=== PATIENT | female | born 1970 | race African-American/Black ===

== ENCOUNTER 2017-04-05 06:06 | Inpatient (IN) | payer BC ==
[2017-03-31 17:19] LABS: BASOPHILS 0.3 %; BASOPHILS ABSOLUTE 0.02 10/3/uL (0.0-0.16); EOSINOPHILS 4.7 %; EOSINOPHILS ABSOLUTE 0.33 10/3/uL (0.0-0.53); HEMATOCRIT 32.6 % (36.0-48.0); HEMOGLOBIN 10.4 g/dL (12.0-16.0); IMMATURE GRANULOCYTES 0.1 %; IMMATURE GRANULOCYTES ABSOLUTE 0.01 10/3/uL (0.0-0.11); LYMPHOCYTES 47.5 %; MANUAL DIFF NO %; MEAN CORPUS HGB CONC 31.9 g/dL (32.0-36.0); MEAN CORPUSCULAR HEMOGLOB 23.4 pg (26.0-34.0); MEAN CORPUSCULAR VOLUME 73.3 fL (80-100); MEAN PLATELET VOLUME 10.3 fL (9.2-13.0); MONOCYTES 5.3 %; MONOCYTES ABSOLUTE 0.37 10/3/uL (0.21-1.20); NEUTROPHILS 42.1 %; NEUTROPHILS ABSOLUTE 2.92 10/3/uL (2.02-8.40); PLATELET COUNT 301 10/3/uL (150-400); RBC DISTRIBUTION WIDTH 18.6 % (12.0-16.0); RED CELL COUNT 4.45 10/6/uL (4.0-5.6)
[2017-03-31 17:26] LABS: INTERNATIONAL NORMAL RATI 1.1 UNITS (-); PROTIME (NOT ORD) 13.6 SEC (12.0-14.5)
[2017-03-31 17:42] LABS: A/G RATIO 0.5 (0.7-1.9); ALBUMIN 2.7 G/DL (3.5-5.0); ALKALINE PHOSPHATASE 82 U/L (45-117); BUN (BLOOD UREA NITROGEN) 6 MG/DL (6-23); CALCIUM, SERUM 8.6 MG/DL (8.5-10.4); CHLORIDE, SERUM 110 MMOL/L (96-112); CO2 (CARBON DIOXIDE) 26 MMOL/L (24-34); CREATININE 0.67 MG/DL (0.55-1.02); GFR AFRICAN AMERICAN 122 ML/MIN (>=60); GFR NON AFRICAN AMERICAN 105 ML/MIN (>=60); GLOBULIN 5.2 G/DL (2.5-4.1); GLUCOSE, SERUM 135 MG/DL (60-99); IRON BINDING CAPACITY 438 MCG/DL (225-410); SGOT(AST) 9 U/L (5-40); SGPT(ALT) 14 U/L (5-65); SODIUM, SERUM 142 MMOL/L (135-148); TOTAL BILIRUBIN 0.3 MG/DL (0-1.2); TOTAL PROTEIN 7.9 G/DL (6.0-8.5)
[2017-03-31 17:44] LABS: POTASSIUM, SERUM 3.9 MMOL/L (3.5-5.3)
[2017-03-31 18:09] LABS: ASCORBIC ACID (UR NOT ORDER) NEG (NEG); BILIRUBIN, URINE NEGATIVE (NEG); KETONE, URINE NEGATIVE (NEG); LEUKOCYTE ESTERASE(NOT OR NEG (NEG); WBC (NOT ORDERED) (RFLEX) < 1 (0-5)
--- NOTE | ~2017-04-05 | CN ---
Consultation Report [facility] [id number] [place]. [address] NAME: GILBERT SOMMER : 70 STATUS : ADM IN [facility]#: [id number] AGE: 46 ADM/REG DATE : 04/05/17 MR#: [id number] REPORT SERV DATE: 04/06/17 DICTATED BY: LESA HAGER DATE: 04/06/17 REPORT STATUS : Draft TRANSCRIBED BY: MODSyed DATE: 04/06/17 DATE OF CONSULTATION: REASON FOR CONSULTATION: Diabetes mellitus management. HISTORY OF PRESENT ILLNESS: This is a 46-year-old female patient who came to the hospital for elective mitral valve replacement. The patient had a successful mitral valve replacement with mechanical valve yesterday and remained in stable condition without any pressor support in the CV ICU. She is recovering very well, and the Hospitalist Service was called for diabetes management. She has been diabetic since 2006, and she is taking metformin and Bydureon. Her last A1c was 6.9, and her primary care physician, Dr. Lakisha Kaye is managing her diabetes mellitus. She also does have rheumatoid arthritis. She goes to Dr. Jean Claude Madrid, taking Plaquenil, methotrexate, and mesalamine. She does not have any chest pain. No shortness of breath, fever, visual changes, or weakness. She does not have any nausea, vomiting, diarrhea, or urination problem. She does have Olea catheter at this point. REVIEW OF SYSTEMS: All 10 systems reviewed and negative. PAST MEDICAL PROBLEM: 1. Diabetes mellitus. 2. Mitral stenosis. 3. Rheumatoid arthritis. 4. Hypertension. 5. Hyperlipidemia. 6. Coronary artery disease, status post heart catheterization and stent in 11/2016. PAST SURGICAL HISTORY: 1. Right carpal tunnel surgery in 2009. 2. Both elbow surgery; left one in 1999; right one in 2003. 3. Cardiac catheterization with stent in 11/2016. 4. Excision of the right foot arthritic nodule in 2012. ALLERGIES: NO KNOWN DRUG ALLERGIES. SOCIAL HISTORY: She smoked cigarettes one pack a day for the last 24 years. She lives with her . She does not work. She is disabled from rheumatoid arthritis. Denies any drinking alcohol and drug use. Consultation Report [facility] [id number] [place]. [address] NAME: GILBERT SOMMER : 70 STATUS : ADM IN PAT#: [id number] AGE: 46 ADM/REG DATE : 04/05/17 MR#: [id number] REPORT SERV DATE: 04/06/17 DICTATED BY: LESA HAGER DATE: 04/06/17 REPORT STATUS : Draft TRANSCRIBED BY: MODL DATE: 04/06/17 MEDICATIONS AT HOME: 1. Aspirin 162 mg once a day. 2. Lipitor 10 mg once at night. 3. Coreg 6.25 mg twice a day. 4. Bydureon 2 mg every week. 5. Folic acid 1 mg once a day. 6. Neurontin 300 mg three times a day. 7. Plaquenil 200 mg twice a day. 8. Lisinopril 10 mg twice a day. 9. Glucophage 500 mg twice a day. 10.Methotrexate 20 mg every week. 11.Prilosec 20 mg once a day. 12.Requip 2 mg once a day. 13.Sulfasalazine 500 mg twice a day. PHYSICAL EXAMINATION: VITAL SIGNS: Blood pressure 118/79 without any pressor support; pulse is 83; temperature 98.2; respiratory rate is 18; saturation is 99% on 3 L of oxygen. GENERAL APPEARANCE: She is alert, awake, not in acute distress in the CV ICU setting. CHEST: She has a median sternotomy covered with a wound VAC. LUNGS: Pretty clear to auscultation. She has decreased breathing sound in both bases. No crackles or wheezing. CARDIOVASCULAR: She has a regular rhythm and rate, and I do hear the mechanical valve sound. ABDOMEN: Bowel sounds present. Soft. No organomegaly appreciated. EXTREMITIES: No pitting edema. LABORATORY DATA: Showed sodium 141, potassium 4.2, chloride of 110, BUN 11, creatinine 0.5. WBC 12.7, hemoglobin 9.2, hematocrit 29.5, platelets 163. INR is 1.6. ASSESSMENT AND PLAN: 1. Diabetes mellitus. A1c was 6.9. Patient was taking Bydureon and Glucophage at home. Currently, requiring about a unit of regular insulin intravenously. 2. Postop mitral valve replacement. 3. Rheumatoid arthritis. 4. Tobacco abuse. 5. Hypertension. 6. The patient will be transitioned to subcutaneous insulin at this time, and we will follow this patient. Thank you for the consultation. EKL/MODL Consultation Report [facility] [address] [address] NAME: GILBERT SOMMER : 70 STATUS : ADM IN PAT#: [id number] AGE: 46 ADM/REG DATE : 04/05/17 MR#: [id number] REPORT SERV DATE: 04/06/17 DICTATED BY: LESA HAGER DATE: 04/06/17 REPORT STATUS : Draft TRANSCRIBED BY: MODSyed DATE: 04/06/17 Lesa Hager M.D. / [id number] CC: MD MEY Strange WENDY A
--- NOTE | ~2017-04-05 | DS ---
Discharge Summary [facility] [address] [place]. [address] NAME: GILBERT SOMMER : 70 STATUS : DIS IN PAT#: [id number] AGE: 46 ADM/REG DATE : 04/05/17 MR#: [id number] REPORT SERV DATE: 04/20/17 DICTATED BY: JM KEENE DATE: 04/20/17 REPORT STATUS : Draft TRANSCRIBED BY: ALEXANDRE DATE: 04/20/17 Data Collection from hospitalization DISCHARGE DIAGNOSES: 1. Mitral valve regurgitation. 2. Diabetes. 3. Hypertension. 4. Hyperlipidemia. 5. Pulmonary edema. 6. Gastroesophageal reflux disease. 7. Asthma. 8. History of pya-TQ-irlmecmoh myocardial infarction. 9. Rheumatoid arthritis. 10.Restless leg syndrome. 11.Tobacco use. CONSULTATIONS: Dr. Lesa Hager and Dr. Sergio Simmons. PROCEDURE PERFORMED: Median sternotomy; extracorporeal circulation; mitral valve replacement with 29 mm mechanical valve, Feng [employer] mitral valve; transesophageal echocardiogram; Prevena dressing placement; left atrial appendage clip, 35 mm clip, 04/05/2017. PATHOLOGY: Anterior mitral valve leaflet-fibroelastotic thickening. No vegetations present. MEDICATIONS: Aspirin 81 mg daily, Lipitor 10 mg at bedtime, Bydureon 2 mg subcutaneously every seven days, folic acid 1 mg daily, Lasix 40 mg daily, Neurontin 300 mg three times a day, [place] 5/325 one to two tablets every four hours as needed, Plaquenil 200 mg twice a day, Zestril 10 mg twice a day, Glucophage 500 mg with breakfast and supper, methotrexate 20 mg every seven days, Prilosec 20 mg daily, K-Dur 20 mEq daily, Requip 2 mg at bedtime, Azulfidine 500 mg twice a day, Coumadin as instructed. CONDITION AT DISCHARGE: Stable. DISPOSITION: The patient was discharged home on an 1800-calorie cardiac/diabetic diet with activities as instructed. She would follow up with Ethan Otero NP two weeks following discharge and with Dr. Sergio Simmons two weeks following discharge. INR check would be performed at Dr. Simmons's office, 04/12/2017. HOSPITAL COURSE: This is a 46-year-old female, who was a smoker and had been admitted to [facility]Note 3] with an acute myocardial infarction. She had stenting of her obtuse marginal performed with a bare-metal stent and was discharged, but ultimately came back to the hospital in congestive heart failure and was found to have ayutkbgj-sl-xedhyw mitral regurgitation with an ejection fraction of approximately 40%. It was felt that she would need to undergo surgical intervention. She was admitted to the hospital at this time for further evaluation and treatment. Upon admission, she was taken to the operating room, where she underwent the above-mentioned procedure. She tolerated this well and there were no complications. On postop day one, she Discharge Summary [facility] [address] [place]. [address] NAME: GILBERT SOMMER : 70 STATUS : DIS IN PAT#: [id number] AGE: 46 ADM/REG DATE : 04/05/17 MR#: [id number] REPORT SERV DATE: 04/20/17 DICTATED BY: JM KEENE DATE: 04/20/17 REPORT STATUS : Draft TRANSCRIBED BY: ALEXANDRE DATE: 04/20/17 was up sitting in a chair. She felt sore. She was able to eat. Diuresis was started. Her blood pressure was controlled. She was seen in consultation by Dr. Lesa Hager regarding diabetes mellitus management. She remained in stable condition without any pressor support in the Cardiovascular ICU. She was recovering well. The patient has been a diabetic since 2006. She had been taking metformin and Bydureon. Her last hemoglobin A1c was 6.9, white count was 12.7. She was going to be transitioned to subcutaneous insulin at this time. Hemoglobin A1c was going to be checked. The patient was seen by Dr. Sergio Simmons. The patient was awake and alert. Her lungs were clear at this time. A nicotine patch had been placed. On 04/07/2017, she was ambulatory. She was being given Glucophage. Insulin was adjusted. Hemoglobin A1c was 6.9. She was ambulating. Blood pressure was controlled. She was in a normal sinus rhythm. Over the next couple of days, discharge planning was performed. INR level was 1.5. Her Glucophage had been resumed. Her Roque drain was discontinued. On 04/09/2017, she was in no distress. She was alert and cooperative. Discharge instructions were given. Due to her improved and stable condition, she was discharged home with the above-stated instructions. Information collected by: Char Velez I submit the above information as my discharge summary. KATH/ALEXANDRE Jm Keene MD / [id number] CC: MD MEY Strange WENDY A [place] A [place], D.O.
--- NOTE | ~2017-04-05 | OP ---
Record Of Operation [facility] [address] [place]. [address] NAME: GILBERT SOMMER : 70 STATUS : ADM IN PAT#: [id number] AGE: 46 ADM/REG DATE : 04/05/17 MR#: [id number] REPORT SERV DATE: 04/05/17 DICTATED BY: JM KEENE DATE: 04/05/17 REPORT STATUS : Draft TRANSCRIBED BY: MODL DATE: 04/05/17 DATE OF PROCEDURE: 04/05/2017 PREOPERATIVE DIAGNOSES: 1. Oogtnhem-ln-llstyn mitral regurgitation. 2. Coronary artery disease, status post obtuse marginal stenting. 3. Systolic congestive heart failure, chronic. 4. Rheumatoid arthritis. POSTOPERATIVE DIAGNOSES: 1. Svqblbnm-yb-oklxci mitral regurgitation. 2. Coronary artery disease, status post obtuse marginal stenting. 3. Systolic congestive heart failure, chronic. 4. Rheumatoid arthritis. OPERATIONS/PROCEDURES PERFORMED: 1. Median sternotomy. 2. Extracorporeal circulation. 3. Mitral valve replacement with 29 mm mechanical valve, Feng [employer] mitral valve. 4. Transesophageal echo. 5. Prevena dressing placement. 6. Left atrial appendage clip, 35 mm clip. SURGEON: Jm Keene MD SOCIAL MEDIA ANALYST: Frank Keene. ANESTHESIOLOGIST: Pasquale Aguillon M.D. TUBES AND DRAINS: A 24-Togolese Roque to the posterior pericardial space, a 32-Togolese anterior mediastinal chest tube, atrial and ventricular wires. DETAILS OF CARDIOPULMONARY BYPASS: Cross-clamp of 125 minutes, total cardiopulmonary bypass time of 148 minutes. POSTOPERATIVE CONDITION: Stable to CVICU, weaned from cardiopulmonary bypass on 5 mcg per kilo per minute of dobutamine. INTRAOPERATIVE FINDINGS: Transesophageal echo showed ytthdlug-pj-gmiokq MR and no clot in the left atrial appendage. EF approximately 40%. There appeared to be no valvular pathology. This appeared to be a central more functional MR with mild annular dilation, mild tethering of the leaflets. INTRAOPERATIVE FINDINGS: Normal-appearing leaflets and annulus was sized to a 30 mm ring. A 28 mm ring was placed and the patient continued to have a severe leak. The ring was removed and did not think that a 26 mm ring would work, so a 29 mm mechanical valve was placed Record Of Operation [facility] [address] [place]. [address] NAME: GILBERT SOMMER : 70 STATUS : ADM IN PAT#: [id number] AGE: 46 ADM/REG DATE : 04/05/17 MR#: [id number] REPORT SERV DATE: 04/05/17 DICTATED BY: JM KEENE DATE: 04/05/17 REPORT STATUS : Draft TRANSCRIBED BY: MODSyed DATE: 04/05/17 pursuant of the patient's wishes. INDICATIONS FOR PROCEDURE: Ms. Sommer is a 46-year-old female, who was a smoker, who was admitted to [facility] with acute RI back in October, had stenting of her obtuse marginal performed with a bare metal stent and was discharged, but ultimately came back to the hospital in congestive heart failure, was found to have iyohhlqf-eh-ciooeh MR with an EF of approximately 40%. She was referred for evaluation for valve repair or replace. The patient was seen. Risks, benefits, and alternatives were discussed with the patient including but not limited to, bleeding, infection, stroke, , heart attack, need for future operations. All questions were answered. STS risk score was discussed with the patient. Risk for repair was less than 6%, risk for replacement was less than 8%. She was felt to be an appropriate candidate. Her tricuspid valve was mild to moderately leaky at the time of the her preoperative KULWINDER and was discussed possibly doing something with this. DETAILS OF PROCEDURE: The patient was brought to the operating room and placed supine on the operating room table. After satisfactory induction of general endotracheal anesthesia, she was prepped and draped in the usual sterile fashion. Working, a median sternotomy was performed. Skin and subcutaneous tissues were divided. Clavipectoral fascia was divided. The sternum was divided in the midline. Hemostasis was obtained. The pericardium was opened in the midline and along the diaphragm. Pericardial well was created. Sternal retractor was replaced and the systemic heparinization was achieved. Ascending aorta was cannulated at the base of the innominate artery through a dual pursestring with a soft flow cannula. A dual stage venous cannula was placed and a cardiopulmonary bypass was initiated. After documentation of an adequate ACT, the heart was elevated and the left atrial appendage was sized and it was sized to a 35 mm clip. A 35 mm clip was brought up and placed. The antegrade root vent cardioplegia tack was placed and the heart was then cross clamped and arrested with 2 liters of crystalloid cardioplegia, Custodiol cardioplegia. The Sondergaard's groove was opened and a left atriotomy was performed. A handheld retractor was placed and then a self-retaining retractor for the Scott retractor was placed. The valve was inspected. The valve appeared normal. There was somewhat difficult visualization given the orientation of the patient's valve within the heart, but valve did appear normal and valve leaflets appeared normal, was unable to on interrogation to make it leak. There did not appear to be elongated chordae in A1, A2, A3 or P1, P2, P3. The decision was made to perform an annuloplasty band. The patient was sized to a 30 mm Physio II in order to undersize this since I felt this was functional MR, a 28 mm Physio II was selected. The annuloplasty stitches were placed in the annulus and then up to the sewing ring of the valve. The valve was lowered into position and anchored using Cor-Knots. Upon interrogation, there appeared to be an eccentric leak mostly at A3. With A3 severely overriding P3, I did not feel that I could see well enough to put chordae and to repair this or repair this through any other techniques. The valve ring was removed. Once the ring was removed, I did not feel that a 26 ring would be appropriate and did not think that the leaflets were without a ring appropriate for repair. Pursuant of the patient's wishes, I decided to replace the valve. Fifteen pledgeted valve replacement sutures were replaced, this was done. The sutures were placed to put the valve in the intra-annular position, the pledgets on the atrial side. The valve was oriented anti-anatomic, and once the sutures were placed, we replaced it with the sewing ring of the valve, the valve was lowered into position and it was anchored into position using Cor-Knots. A vent was placed across the Record Of Operation [address] [place]. [address] NAME: GILBERT SOMMER : 70 STATUS : ADM IN [facility]#: [id number] AGE: 46 ADM/REG DATE : 04/05/17 MR#: [id number] REPORT SERV DATE: 04/05/17 DICTATED BY: JM KEENE DATE: 04/05/17 REPORT STATUS : Draft TRANSCRIBED BY: ALEXANDRE DATE: 04/05/17 valve. Left atria were closed in two layers. De-airing maneuvers were performed. The cross-clamp was removed. Atrial and ventricular pacing wires were placed. The patient was able to be weaned from cardiopulmonary bypass. The vent was ultimately removed after the heart was de-aired. The suture line was closed. The patient was able to be weaned from cardiopulmonary bypass. Protamine was administered and she was decannulated. All cannulation sites were oversewn with 4-0 Prolene. A 24-Togolese Roque was placed in the posterior pericardial space and a 32-Togolese chest tube was placed. The pericardium was loosely reapproximated over the right ventricle and the ascending aorta. The sternum was reapproximated with stainless steel sternal wires. The clavipectoral fascia was reapproximated using running #1 StrataFix. The skin and subcutaneous tissues closed using continuation of the StrataFix and a 2-0 Quill. Prevena dressing was placed. The patient was transferred to CVICU in critical, stable condition. [facility]/ALEXANDRE Jm Keene MD / [id number] CC: MD Sergio Strange D.O.
[~2017-04-05 06:06] MED LIST: ASA5GR PO; AZULFENTAB PO; BRIMONIDINE0.2 % OPH; BYDUREON2 MG SQ; COREG6 PO; DIOVAN320 MG PO; FOLIC PO; GLUCPH PO; LIPITOR10 PO; MEDROL4 PO; MTX2.5 PO; NEUR300 PO; P5 PO; PERFOROM INH; PLAQ200B PO; PRILO PO; REQUIP2 PO; SAS500 PO; TRUSOPT2 % OPH; VOLT75 PO; XALAT OPH; ZESTRIL10 MG PO
[2017-04-05 14:58] LABS: BE (BASE EXCESS) -2.2 MEQ/L (0 +/- 2.5); CARBOXYHEMOGLOBIN 0.3 % (0-3); HCO3 (ACTUAL BICARBONATE) 23.4 MEQ/L (23-27); HEMOBLOGIN CONTENT 9.8 G/DL (12-16); INSTRUMENT SERIAL # 11843; METHEMOGLOBIN 0.7 % (0-3); MODE SIMV; O2 CONTENT 13.3 VOL% (18-24); OPERATOR ID 18642; PCO2 (CO2 TENSION) 44 MMHG (35-45); PO2 (O2 TENSION) 95 MMHG (79-93); PRESSURE SUPPORT 0 cm.H2O; SAMPLE Arterial; TIDAL VOLUME 700 ML; pH 7.35 (7.37-7.43)
[2017-04-05 15:32] LABS: HEMOGLOBIN 8.7 g/dL (12.0-16.0)
[2017-04-05 15:35] LABS: HEMATOCRIT 28.5 % (36.0-48.0); PLATELET COUNT 170 10/3/uL (150-400)
[2017-04-05 15:41] LABS: FIBRINOGEN 280 MG/DL (230-462); INTERNATIONAL NORMAL RATI 1.6 UNITS (-); PARTIAL THROMBO TIME 33.1 SEC (22.5-37.2)
[2017-04-05 15:43] LABS: BUN (BLOOD UREA NITROGEN) 7 MG/DL (6-23); CALCIUM, SERUM 8.4 MG/DL (8.5-10.4); CHLORIDE, SERUM 111 MMOL/L (96-112); CO2 (CARBON DIOXIDE) 26 MMOL/L (24-34); CREATININE 0.78 MG/DL (0.55-1.02); GFR AFRICAN AMERICAN 106 ML/MIN (>=60); GFR NON AFRICAN AMERICAN 91 ML/MIN (>=60); GLUCOSE, SERUM 110 MG/DL (60-99); POTASSIUM, SERUM 4.1 MMOL/L (3.5-5.3); SODIUM, SERUM 136 MMOL/L (135-148)
[2017-04-05 15:44] LABS: PROTIME (NOT ORD) 18.9 SEC (12.0-14.5)
[2017-04-05 19:10] LABS: BE (BASE EXCESS) -1.3 MEQ/L (0 +/- 2.5); CARBOXYHEMOGLOBIN 0.2 % (0-3); DEVICE NC; HCO3 (ACTUAL BICARBONATE) 22.8 MEQ/L (23-27); HEMOBLOGIN CONTENT 10.8 G/DL (12-16); INSTRUMENT SERIAL # 11843; METHEMOGLOBIN 0.6 % (0-3); O2 CONTENT 13.8 VOL% (18-24); OPERATOR ID 13744; PCO2 (CO2 TENSION) 36 MMHG (35-45); PO2 (O2 TENSION) 68 MMHG (79-93); SAMPLE Arterial; pH 7.42 (7.37-7.43)
[2017-04-05 21:25] LABS: HEMATOCRIT 30.3 % (36.0-48.0); HEMOGLOBIN 9.5 g/dL (12.0-16.0)
[2017-04-05 21:42] LABS: CALCIUM, SERUM 8.1 MG/DL (8.5-10.4); CHLORIDE, SERUM 115 MMOL/L (96-112); CO2 (CARBON DIOXIDE) 22 MMOL/L (24-34); CREATININE 0.63 MG/DL (0.55-1.02); GFR AFRICAN AMERICAN 125 ML/MIN (>=60); GFR NON AFRICAN AMERICAN 108 ML/MIN (>=60); GLUCOSE, SERUM 101 MG/DL (60-99); POTASSIUM, SERUM 3.9 MMOL/L (3.5-5.3); SODIUM, SERUM 136 MMOL/L (135-148)
[2017-04-05 21:45] LABS: BUN (BLOOD UREA NITROGEN) 11 MG/DL (6-23)
[2017-04-06 03:34] LABS: BASOPHILS 0.1 %; BASOPHILS ABSOLUTE 0.01 10/3/uL (0.0-0.16); EOSINOPHILS 0 %; HEMATOCRIT 29.5 % (36.0-48.0); HEMOGLOBIN 9.2 g/dL (12.0-16.0); IMMATURE GRANULOCYTES 0.2 %; IMMATURE GRANULOCYTES ABSOLUTE 0.02 10/3/uL (0.0-0.11); LYMPHOCYTES 17.9 %; LYMPHOCYTES ABSOLUTE 2.27 10/3/uL (0.67-4.30); MEAN CORPUS HGB CONC 31.2 g/dL (32.0-36.0); MEAN CORPUSCULAR HEMOGLOB 23.3 pg (26.0-34.0); MEAN CORPUSCULAR VOLUME 74.7 fL (80-100); MEAN PLATELET VOLUME 10.3 fL (9.2-13.0); MONOCYTES 7.7 %; MONOCYTES ABSOLUTE 0.98 10/3/uL (0.21-1.20); NEUTROPHILS 74.1 %; NEUTROPHILS ABSOLUTE 9.39 10/3/uL (2.02-8.40); PLATELET COUNT 163 10/3/uL (150-400); RBC DISTRIBUTION WIDTH 18.7 % (12.0-16.0); RED CELL COUNT 3.95 10/6/uL (4.0-5.6)
[2017-04-06 03:35] LABS: MANUAL DIFF NO %; WHITE BLOOD CELLS 12.7 10/3/uL (4.5-10.5)
[2017-04-06 03:47] LABS: BUN (BLOOD UREA NITROGEN) 11 MG/DL (6-23); CALCIUM, SERUM 7.9 MG/DL (8.5-10.4); CHLORIDE, SERUM 110 MMOL/L (96-112); CO2 (CARBON DIOXIDE) 21 MMOL/L (24-34); CREATININE 0.51 MG/DL (0.55-1.02); GFR AFRICAN AMERICAN 134 ML/MIN (>=60); GFR NON AFRICAN AMERICAN 115 ML/MIN (>=60); GLUCOSE, SERUM 92 MG/DL (60-99); POTASSIUM, SERUM 4.2 MMOL/L (3.5-5.3); SODIUM, SERUM 141 MMOL/L (135-148)
[2017-04-06 04:15] LABS: PLATELET ESTIMATE ADQ (ADEQUATE)
[2017-04-06 04:16] LABS: ANISOCYTOSIS 1+ (5-10/OIF) (0-5/OIF)
[2017-04-07 05:26] LABS: CALCIUM, SERUM 8.1 MG/DL (8.5-10.4); CO2 (CARBON DIOXIDE) 23 MMOL/L (24-34); CREATININE 0.72 MG/DL (0.55-1.02); GFR AFRICAN AMERICAN 116 ML/MIN (>=60); GFR NON AFRICAN AMERICAN 100 ML/MIN (>=60); POTASSIUM, SERUM 4.3 MMOL/L (3.5-5.3)
[2017-04-07 05:28] LABS: BUN (BLOOD UREA NITROGEN) 16 MG/DL (6-23); CHLORIDE, SERUM 99 MMOL/L (96-112); GLUCOSE, SERUM 190 MG/DL (60-99); SODIUM, SERUM 131 MMOL/L (135-148)
[2017-04-07 05:32] LABS: HEMATOCRIT 29.2 % (36.0-48.0); MEAN CORPUS HGB CONC 30.8 g/dL (32.0-36.0); MEAN CORPUSCULAR HEMOGLOB 22.7 pg (26.0-34.0); MEAN CORPUSCULAR VOLUME 73.6 fL (80-100); MEAN PLATELET VOLUME 10.7 fL (9.2-13.0); PLATELET COUNT 169 10/3/uL (150-400); RBC DISTRIBUTION WIDTH 18.8 % (12.0-16.0); RED CELL COUNT 3.97 10/6/uL (4.0-5.6); WHITE BLOOD CELLS 13.7 10/3/uL (4.5-10.5)
[2017-04-07 05:36] LABS: MANUAL DIFF YES %
[2017-04-07 06:18] LABS: BAND NEUTROPHILS 2 %; HYPOCHROMIA 1+ (3-10/OIF) (0-2/OIF); LYMPHOCYTES 12 %; LYMPHOCYTES ABSOLUTE (CALC) 1.64 10/3/uL (0.67-4.30); MONOCYTES 8 %; NEUTROPHILS ABSOLUTE (CALC) 10.96 10/3/uL (2.02-8.40); SEGMENTED NEUTROPHIL (0) 78 %; TOTAL NUCLEATED CELLS 100
[2017-04-07 06:19] LABS: PLATELET ESTIMATE ADQ (ADEQUATE)
[2017-04-07 14:05] LABS: INTERNATIONAL NORMAL RATI 1.3 UNITS (-)
[2017-04-07 14:06] LABS: PROTIME (NOT ORD) 15.8 SEC (12.0-14.5)
[2017-04-08 04:36] LABS: INTERNATIONAL NORMAL RATI 1.5 UNITS (-); PROTIME (NOT ORD) 17.8 SEC (12.0-14.5)
[2017-04-08 04:42] LABS: CALCIUM, SERUM 7.9 MG/DL (8.5-10.4); CHLORIDE, SERUM 101 MMOL/L (96-112); CO2 (CARBON DIOXIDE) 27 MMOL/L (24-34); CREATININE 0.52 MG/DL (0.55-1.02); GFR AFRICAN AMERICAN 133 ML/MIN (>=60); GFR NON AFRICAN AMERICAN 115 ML/MIN (>=60); GLUCOSE, SERUM 169 MG/DL (60-99); POTASSIUM, SERUM 3.7 MMOL/L (3.5-5.3); SODIUM, SERUM 136 MMOL/L (135-148)
[2017-04-08 04:43] LABS: BUN (BLOOD UREA NITROGEN) 10 MG/DL (6-23)
[2017-04-08 05:06] LABS: BASOPHILS 0.1 %; BASOPHILS ABSOLUTE 0.01 10/3/uL (0.0-0.16); EOSINOPHILS 0.1 %; EOSINOPHILS ABSOLUTE 0.01 10/3/uL (0.0-0.53); HEMATOCRIT 26.8 % (36.0-48.0); HEMOGLOBIN 8.7 g/dL (12.0-16.0); IMMATURE GRANULOCYTES 0.4 %; IMMATURE GRANULOCYTES ABSOLUTE 0.04 10/3/uL (0.0-0.11); LYMPHOCYTES 28.4 %; LYMPHOCYTES ABSOLUTE 3.05 10/3/uL (0.67-4.30); MANUAL DIFF NO %; MEAN CORPUS HGB CONC 32.5 g/dL (32.0-36.0); MEAN CORPUSCULAR HEMOGLOB 22.9 pg (26.0-34.0); MEAN CORPUSCULAR VOLUME 70.5 fL (80-100); MONOCYTES 10.3 %; MONOCYTES ABSOLUTE 1.11 10/3/uL (0.21-1.20); NEUTROPHILS 60.7 %; NEUTROPHILS ABSOLUTE 6.52 10/3/uL (2.02-8.40); PLATELET COUNT 161 10/3/uL (150-400); RBC DISTRIBUTION WIDTH 18.6 % (12.0-16.0); WHITE BLOOD CELLS 10.7 10/3/uL (4.5-10.5)
[2017-04-08 06:36] LABS: ANISOCYTOSIS 1+ (5-10/OIF) (0-5/OIF); PLATELET ESTIMATE ADQ (ADEQUATE)
[2017-04-09 05:39] LABS: INTERNATIONAL NORMAL RATI 2.6 UNITS (-)
[2017-04-09 05:40] LABS: PROTIME (NOT ORD) 27.9 SEC (12.0-14.5)
[2017-04-09 05:47] LABS: BASOPHILS 0.1 %; BASOPHILS ABSOLUTE 0.01 10/3/uL (0.0-0.16); EOSINOPHILS ABSOLUTE 0.11 10/3/uL (0.0-0.53); HEMATOCRIT 27.7 % (36.0-48.0); HEMOGLOBIN 8.8 g/dL (12.0-16.0); IMMATURE GRANULOCYTES 0.3 %; IMMATURE GRANULOCYTES ABSOLUTE 0.03 10/3/uL (0.0-0.11); LYMPHOCYTES 34.2 %; LYMPHOCYTES ABSOLUTE 3.84 10/3/uL (0.67-4.30); MEAN CORPUS HGB CONC 31.8 g/dL (32.0-36.0); MEAN CORPUSCULAR VOLUME 72.3 fL (80-100); MEAN PLATELET VOLUME 10.4 fL (9.2-13.0); MONOCYTES 10.4 %; MONOCYTES ABSOLUTE 1.17 10/3/uL (0.21-1.20); NEUTROPHILS ABSOLUTE 6.08 10/3/uL (2.02-8.40); NUCLEATED RED BLOOD CELLS 0.7 /100WBC (0-0); PLATELET COUNT 177 10/3/uL (150-400); RBC DISTRIBUTION WIDTH 18.9 % (12.0-16.0); RED CELL COUNT 3.83 10/6/uL (4.0-5.6); WHITE BLOOD CELLS 11.2 10/3/uL (4.5-10.5)
[2017-04-09 05:49] LABS: MANUAL DIFF NO %
[2017-04-09 05:52] LABS: CALCIUM, SERUM 7.9 MG/DL (8.5-10.4); CHLORIDE, SERUM 99 MMOL/L (96-112); CO2 (CARBON DIOXIDE) 28 MMOL/L (24-34); CREATININE 0.64 MG/DL (0.55-1.02); GFR AFRICAN AMERICAN 124 ML/MIN (>=60); GFR NON AFRICAN AMERICAN 107 ML/MIN (>=60); POTASSIUM, SERUM 3.7 MMOL/L (3.5-5.3); SODIUM, SERUM 132 MMOL/L (135-148)
[2017-04-09 05:54] LABS: BUN (BLOOD UREA NITROGEN) 5 MG/DL (6-23); GLUCOSE, SERUM 121 MG/DL (60-99)
[2017-04-09 17:28] LABS: INTERNATIONAL NORMAL RATI 2.9 UNITS (-); PROTIME (NOT ORD) 29.9 SEC (12.0-14.5)
[2017-04-09] MEDS ORDERED: ASAB PO (18:06)
[2017-04-09] MEDS ORDERED: L40 PO (18:08)
[2017-04-09] MEDS ORDERED: KDUR20 PO (18:09)
[2017-04-09] MEDS ORDERED: C5 PO (18:10)
[2017-04-09] MEDS ORDERED: C25 PO (18:11)
[2017-04-09] MEDS ORDERED: NORCO1 TA1 PO (18:12)
[2017-07-19] MEDS ORDERED: FOLIC PO (21:19)
[2017-07-19] MEDS ORDERED: GLUCOPHAGE1000 MG PO (21:19)
[2017-07-19] MEDS ORDERED: REQUIP2 PO (21:19)
[2017-07-19] MEDS ORDERED: PRILO PO (21:19)
[2017-07-19] MEDS ORDERED: BYDUREON2 MG SQ (21:20)
[2017-07-19] MEDS ORDERED: PRIN10 PO (21:20)
[2017-07-19] MEDS ORDERED: SPIRIVA INH (21:20)
[2017-07-19] MEDS ORDERED: LIPITOR10 PO (21:20)
[2017-07-19] MEDS ORDERED: PROVHFA INH (21:20)
[2017-07-19] MEDS ORDERED: NEUR300 PO (21:21)
[2017-07-19] MEDS ORDERED: SULFAZINE500 MG PO (21:21)
[2017-07-19] MEDS ORDERED: NITROSTAT0.4 MG SL (21:21)
[2017-07-19] MEDS ORDERED: C25 PO (21:22)
[2017-07-19] MEDS ORDERED: C5 PO (21:22)
[2017-07-19] MEDS ORDERED: C1 PO (21:22)
[2017-07-19] MEDS ORDERED: HALF81 PO (21:23)
[2017-07-19] MEDS ORDERED: PLAQ200B PO (21:23)
[2017-07-19] MEDS ORDERED: MTX2.5 PO (21:23)
[2017-07-21] MEDS ORDERED: SPIRO25 PO ×2 (10:20→10:21)
[2017-07-21] MEDS ORDERED: KLOR-CON 1010 MEQ PO (10:21)
[2017-07-21] MEDS ORDERED: COREG3 PO (10:22)
[2017-07-21] MEDS ORDERED: L40 PO (10:22)
[2017-07-21] MEDS ORDERED: FESO4 PO (10:23)
== END 2017-04-09 19:22 | disposition home or self-care (01) | DRG 219 ==
LOC: SDC/OF 06:06 → CVICU 14:07 → 5NO 04-06 13:42
PROVIDERS: Thoracic Surgery (Cardiothoracic Vascular Surgery)
PROC: 02L70CK Occlusion of Left Atrial Appendage with Extraluminal Device, Open Approach (ICD-10-PCS; 2017-04-05)
PROC: 02RG0JZ Replacement of Mitral Valve with Synthetic Substitute, Open Approach (ICD-10-PCS; principal; 2017-04-05 07:30)
PROC: 5A1221Z Performance of Cardiac Output, Continuous (ICD-10-PCS; 2017-04-05 07:30)
PROC: B246ZZ4 Ultrasonography of Right and Left Heart, Transesophageal (ICD-10-PCS; 2017-04-05 07:30)
DX: I34.0 Nonrheumatic mitral (valve) insufficiency (principal); I50.23 Acute on chronic systolic (congestive) heart failure; I25.10 Atherosclerotic heart disease of native coronary artery without angina pectoris; M06.9 Rheumatoid arthritis, unspecified; F17.210 Nicotine dependence, cigarettes, uncomplicated; E11.9 Type 2 diabetes mellitus without complications; Z79.84 Long term (current) use of oral hypoglycemic drugs; I11.0 Hypertensive heart disease with heart failure
CPT/HCPCS: 31720; 36415; 36600; 71010; 71020; 80048; 80053; 81001; 82330; 82803; 82805; 82947; 82962; 83036; 83550; 83735; 84132; 84295; 84703; 85014; 85018; 85025; 85049; 85347; 85384; 85610; 85730; 86850; 86900; 86901; 86920; 87641; 88305; 93005; 93312; 93320; 93325; 94002; 94640; 94660; 94770; A9270-GY; C1713; C1769; C1894; J0690; J1644; J2150; J2250; J2370; J2405; J2720; J2930; J3010; J3370; J3475; J3480; P9045; P9047